=== PATIENT | male | born 1985 | race Caucasian/White ===

== ENCOUNTER → 2018-07-25 | Outpatient (REF) | payer OTHER | LOC: M SMT 13:17 | PROVIDERS: ATTEND Urology | DX: Z30.2 Encounter for sterilization (principal) ==

== ENCOUNTER → 2020-03-03 | Outpatient (CLI) | payer OTHER ==
--- NOTE | 2020-03-04 09:07 | REP ---
INDICATION: CHANTEL VASCULATION, ANEURSYM COMPARISON: None. TECHNIQUE: Slater scale and color Doppler evaluation using linear high frequency transducer Findings: FINDINGS: Two-dimensional slater scale and color images demonstrate normal arterial lumen with laminar flow and no appreciable narrowing. Color Doppler interrogation demonstrates normal arterial wave patterns and velocities with no significant spectral broadening. Normal flow direction is appreciated in the bilateral vertebral arteries. ICA peak systolic velocity: Right 53.1 cm/s; Left 65.4 cm/s ICA diastolic velocity: Right 19.6 cm/s; Left 23.4 cm/s ECA peak systolic velocity: Right 115.6 cm/s; Left 103.3 cm/s CCA peak systolic velocity: Right 88.9 cm/s; Left 105.4 cm/s ICA/CCA ratio: Right 0.6 cm/s; Left 0.6 cm/s IMPRESSION: No hemodynamically significant areas of narrowing or stenosis appreciated. Based on set standards narrowing falls within the normal range. <Electronically signed by Srinivas Cowan > 03/04/20 0904
== END ==
LOC: M RAD 12:39
PROVIDERS: ATTEND Physician Assistant
DX: H35.049 Retinal micro-aneurysms, unspecified, unspecified eye (principal)